=== PATIENT | female | born 1970 | race Caucasian/White ===

== ENCOUNTER 2019-02-15 05:14 | Day surgery (SDC) | payer OTHER | END 2019-02-15 10:25 | disposition home or self-care (01) | LOC: AMB-ENDOS 05:14 | DX: K63.5 Polyp of colon (principal); N80.5 Endometriosis of intestine ==

== ENCOUNTER 2019-05-20 07:00 | Inpatient (IN) | payer OTHER ==
[~2019-05-20] VITALS: Ht 121.9 cm; Wt 79.4 kg
[2019-05-20] MEDS ORDERED: KAPSPARGO SPRIN25 MG PO (08:36)
[2019-05-20] MEDS ORDERED: ZOLOFT25 MG PO (08:37)
[2019-05-27] MEDS ORDERED: ULTRAM50 MG PO (09:22)
[2019-05-27] MEDS ORDERED: COLACE100 MG PO (09:22)
[2019-05-27] MEDS ORDERED: SIMETHICONE125 M1 PO (09:22)
== END 2019-05-27 11:04 | DRG 743 ==
LOC: O/R 05-26 05:13 → OB/GYN 05-26 05:13 → O/R 05-26 07:00 → OB/GYN 05-26 11:10
PROVIDERS: ADMIT Obstetrics & Gynecology
PROC: 0UT74ZZ Resection of Bilateral Fallopian Tubes, Percutaneous Endoscopic Approach (ICD-10-PCS; 2019-05-26)
PROC: 0UT04ZZ Resection of Right Ovary, Percutaneous Endoscopic Approach (ICD-10-PCS; 2019-05-26)
PROC: 0USG4ZZ Reposition Vagina, Percutaneous Endoscopic Approach (ICD-10-PCS; 2019-05-26)
PROC: 0UT94ZZ Resection of Uterus, Percutaneous Endoscopic Approach (ICD-10-PCS; principal; 2019-05-26 07:00)
DX: N83.12 Corpus luteum cyst of left ovary (principal); N80.2 Endometriosis of fallopian tube; N72 Inflammatory disease of cervix uteri